=== PATIENT | male | born 1960 | race Caucasian/White ===

== ENCOUNTER → 2017-01-31 | Outpatient (CLI) | payer BC ==
[~2017-01-31] VITALS: Ht 182.9 cm; Wt 98.0 kg
[~2017-01-31] MED LIST: ASPEC325 PO; ASPI81TA28; ATOR-26 PO; BENZOCAIN/TETRACA/BUTAM SPRAY 200 APPLN/20 GM SPRY ONE; BUPR150T7 PO; CANNULA ONE; CLOP1TAB15 PO; FENO145T26 PO; FENO48TA9 PO; FENTANYL CITRATE INJ 50 MCG/1 ML 2 ML VIAL ONE; GLC/500 PO; METO25TA3 PO; MIDAZOLAM HCL 1 MG/ML 2ML VIAL ONE; NITR0.4S UT; OMEP40CA36 PO
[2017-01-31 08:16] VITALS: Ht 182.9 cm; Wt 98.0 kg
[2017-01-31 08:17] VITALS: BP 132/65; PULSE 46; TEMP 36.7; O2SAT 98
[2017-01-31 08:44] VITALS: BP 132/73; PULSE 45; O2SAT 98
[2017-01-31 08:49] VITALS: BP 118/64; PULSE 49; O2SAT 97
[2017-01-31 08:53] VITALS: BP 126/66; PULSE 46; O2SAT 97
[2017-01-31 08:55] VITALS: BP 130/65; PULSE 49; O2SAT 97
[2017-01-31 09:45] VITALS: BP 124/66; PULSE 47; O2SAT 94
--- NOTE | 2017-01-31 09:46 | Discharge Instructions ---
Discharge Instructions Date of Service Jan 31, 2017. Admission Reason for Admission: W/O Anes Tia,Cva *Dr Ferris To Do* Discharge Discharge Diagnosis / Problem: No cardiac source of emboli Discharge Goals Goal(s): Screening Activity Recommendations Activity Limitations: resume your previous activity . Instructions / Follow-Up Instructions / Follow-Up Keep all previous follow-up appointments Current Hospital Diet Patient's current hospital diet: Discharge Diet Recommended Diet: AHA Diet (Heart Healthy) Pending Studies Studies pending at discharge: no Medical Emergencies . Who to Call and When: Medical Emergencies: If at any time you feel your situation is an emergency, please call 911 immediately. . Non-Emergent Contact Non-Emergency issues call your: Primary Care Provider . . "Provider Documentation" section prepared by Robert Ferris. . VTE Core Measure Inpt VTE Proph given/why not?: Other Anticoagulation
--- NOTE | 2017-02-04 14:56 | TEE ---
*NOTICE TO RECEIVING LIBERTARIAN AGENCY This information is strictly Confidential and protected under [place] law. [place] law prohibits you from making any further disclosure of this information unless further disclosure is expressly permitted by the written consent of the person to whom it pertains or is authorized by law. A general authorization for the release of medical or other information is not sufficient for this purpose. Hospital accepts no responsibility if the information is made available to any other person, INCLUDING THE PATIENT. Interpretation Summary * Name: TAMARA HUYNH Study Date: 01/31/2017 08:54 AM BP: 132/73 mmHg * Patient Location: [facility] HR: 46 * : 1960 (M/d/yyyy) Gender: Male Height: 72 in * Age: 56 yrs Ethnicity: [place] Weight: 216 lb * Ordering Physician: Robert Ferris DO * Referring Physician: Robert Ferris DO * Performed By: Damaso Vines RCS * * Reason For Study: TIA/CVA * BSA: 2.2 m2 * No cardiac source of emboli noted. * -- Conclusions -- * Injection of contrast documented no interatrial shunt. * The interatrial septum is intact with no evidence for an atrial septal defect. * No cardiac source of emboli noted. Procedure Details * The transesophageal portion of this study was personally supervised by the undersigned interpreting physician. * Time out was conducted by the physician, nurse, and simulation tech with positive identification of patient and procedure. * The study was performed in Cardiopulmonary Department. * Informed consent for Transesophageal Echocardiogram was obtained prior to the procedure. * An intravenous line was placed. A topical anesthetic agent was used for oropharangeal anesthesia. A bite block was inserted. * The patient's vital signs, including blood pressure, heart rate, pulse oximetry and cardiac rhythm were monitored throughout the procedure . * The posterior oropharynx was anesthetized using a topical anesthetic spray. A bite guard was inserted. * BENJAMIN Probe #1 utilized for procedure. * A multifrequency, multiplane transesopheageal echocardiographic endoscope was inserted and manipulated in the standard fashion to achieve multiplane views. * The transesophageal probe was passed without difficulty. * The usual views were obtained; basal, mid-esophageal, transgastric and aortic views. * The patient tolerated the procedure well without evidence of orophangeal or esophageal trauma. * A 2D transesophageal echocardiogram with spectral and color flow Doppler was performed. * Contrast injection with agitated saline was performed. * Start/ Probe Insertion: 0844 End/ Probe Out: 0857 Left Ventricle * The left ventricle is normal in size. * There is no thrombus. * Left ventricular systolic function is normal. Right Ventricle * The right ventricle is grossly normal size. * The right ventricular systolic function is normal. Atria * The left atrial size is normal. * No thrombus is detected in the left atrial appendage. * Right atrial size is normal. * Injection of contrast documented no interatrial shunt. * The interatrial septum is intact with no evidence for an atrial septal defect. Tricuspid Valve * The tricuspid valve is not well visualized, but is grossly normal. * Significant tricuspid regurgitation is absent. Aortic Valve * The aortic valve is tricuspid. The leaflet thickness if normal. There is no aortic stenosis, and no significant insufficiency. * The aortic valve opens well. * There is no significant aortic regurgitation. Pulmonic Valve * The pulmonic valve is not well visualized. Great Vessels * The aortic root and proximal ascending aorta are normal sized. Pericardium * There is no pericardial effusion.
== END | disposition home or self-care (01) ==
LOC: C.CPL 07:00
PROVIDERS: ATTEND Internal Medicine Interventional Cardiology
DX: I67.2 Cerebral atherosclerosis (principal); Z86.73 Personal history of transient ischemic attack (TIA), and cerebral infarction without residual deficits